=== PATIENT | male | born 1955 | race African-American/Black ===

== ENCOUNTER 2025-05-25 14:13 | Outpatient (REF) | payer MEDICARE, MEDICAID, SELFPAY ==
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
--- NOTE | ~2025-05-25 | US_ITS ---
CLINICAL HISTORY: CYST OF KIDNEY US Renal Comparison: None provided Findings: Right kidney normal size and echotexture, 9.4 cm length. Left kidney normal size and echotexture, 9.3 cm length. There is a 3.4 x 2.8 x 2.0 cm simple appearing cyst within the lower pole of the right kidney. There is a 2.7 x 2.3 x 2.5 cm cyst within the upper pole of the left kidney. This may contain a small septation. There is no associated blood flow. No collecting system dilatation of either kidney. Normal color Doppler. IMPRESSION: 1. There are bilateral kidney cysts. This document has been electronically signed by: Prachi Carson MD on 05/26/2025 15:42:51
--- OUTSIDE RECORDS SUMMARY | 2025-05-25 16:06 | XMS_ITS | Encounter Summary ---
Author Organization [employer] Address [address] [place] [address] Care Team Providers Care Junior Automation Engineer Name Role Phone Name, Ramon JOHNSON Primary Care Provider [phone] Reason for Visit * Reason Comments Med Refill Encounter Details Date Type Department Care Team ([facility] st Contact Info) Description 06/26/2023 Refill [facility] [address], [place] [phone] Sheree Guzman DO [address] [place], [place] [phone] Essential hypertension; Constipation, unspecified constipation type Social History Tobacco Use Types Packs/Day Years Used Date Smoking Tobacco: Every Day Cigarettes Alcohol Use Standard Drinks/Week Comments Never 0 (1 standard drink = 0.6 oz pur e alcohol) Depression Answer Date Recorded Patient Health Questionnaire-9 Score 0 03/31/2023 Housing Stability Answer Date Recorded What is your housing situation today? I have luz mccormack 06/26/[address] you li ve. Do you have problems with any of the following? None of the above 06/26/2023 Food Insecurity Answer Date Recorded Within the past 12 months, y ou worried that your food would run out before you got money to buy more: Often true 06/26/2023 Within the past 12 months,th e food you bought just didn't last and you didn't have enough money to get more: Often true Transportation Answer Date Recorded In the past 12 months, has l ack of transportation kept you from medical appts, meetings, work or from getting things needed for daily living? No 06/26/2023 Utilities Answer Date Recorded In the past 12 months, has t he electric, gas, oil or water company threatened to shut off services in your home? Yes 06/16/2023 Depression Answer Date Recorded Patient Health Questionnaire-2 Score 0 03/31/2023 Sex and Gender Information Value Date Recorded Sex Assigned at Male 07/07/2022 10:37 AM EDT Legal Sex Male 10:37 AM EDT Gender Identity Male 07/07/2022 10:37 AM EDT Sexual Orientation Choose not to disclose 2021 10:37 AM EDT documented as of this encounter Plan of Treatment Upcoming Encounters Date Type Department Care Team (Late st Contact Info) Description 07/07/2025 1:30 PM EDT Telemedicine [facility] [address] [place] [phone] Christal Buckner RN 07/25/2025 1:00 PM EST Office Visit [facility] [address] [place] [phone] Name, MD Ramon [address] [place] [phone] documented as of this encounter Visit Diagnoses Diagnosis Essential hypertension Unspecified essential hypertension Constipation, unspecified constipation type documented in this encounter Additional Health Concerns Assessment Noted Time PHQ-9 Depression Total Score: 0 03/31/20 23 1:14 PM EDT documented as of this encounter Care Teams Junior Automation Engineer Relationship Specialty Start Date End Date Name, MD Ramon [address] [place] [id number] PCP - General Family Medicine 12/25/20 documented as of this encounter
--- OUTSIDE RECORDS SUMMARY | 2025-05-25 16:06 | XMS_ITS | Encounter Summary ---
Author Organization [employer] Address 75 [facility] 7t [place] [address] Care Team Providers Care Chief Engineer Drilling And Recovery Name Role Phone Name, Ramon JOHNSON Primary Care Provider [phone] Reason for Visit * Reason Comments Med Refill Encounter Details Date Type Department Care Team ([facility] st Contact Info) Description 03/09/2025 Refill [facility] [address] [place], [place] [phone] Divine Mcneal NP 230 [place], [place] [phone] Essential hypertension Social History Tobacco Use Types Packs/Day Years Used Date Smoking Tobacco: Every Day Cigarettes Alcohol Use Standard Drinks/Week Comments Never 0 (1 standard drink = 0.6 oz pur e alcohol) Depression Answer Date Recorded Patient Health Questionnaire-9 Score 10 02/28/2025 Patient Health Questionnaire-9 Score 10 02/28/2025 Last PHQ-9: Questionnaire Data Not on file 0 02/28/2025 Housing Stability Answer Date Recorded What is your housing situation today? I have luz mccormack 02/28/[address] you li ve. Do you have problems with any of the following? None of the above 02/28/2025 Food Insecurity Answer Date Recorded Within the past 12 months, y ou worried that your food would run out before you got money to buy more: Never True 02/28/2025 Within the past 12 months,th e food you bought just didn't last and you didn't have enough money to get more: Never True Transportation Answer Date Recorded In the past 12 months, has l ack of transportation kept you from medical appts, meetings, work or from getting things needed for daily living? No 02/28/2025 Utilities Answer Date Recorded In the past 12 months, has t he electric, gas, oil or water company threatened to shut off services in your home? No 02/28/2025 Depression Answer Date Recorded Patient Health Questionnaire-2 Score 3 02/28/2025 Internet Access Answer Date Recorded Internet Access Q1 Yes 02/28/2025 Internet Access Q2 Not on file 02/28/2025 Sex and Gender Information Value Date Recorded Sex Assigned at Male 07/07/2022 10:37 AM EDT Legal Sex Male 10:37 AM EDT Gender Identity Male 07/07/2022 10:37 AM EDT Sexual Orientation Choose not to disclose 2021 10:37 AM EDT documented as of this encounter Plan of Treatment Upcoming Encounters Date Type Department Care Team (Late st Contact Info) Description 07/07/2025 1:30 PM EDT Telemedicine [facility] [address] [place] [phone] Christal Buckner RN 07/25/2025 1:00 PM EST Office Visit [facility] [address] [place] [address] NameRamon MD [address] [place] [address] documented as of this encounter Visit Diagnoses Diagnosis Essential hypertension Unspecified essential hypertension documented in this encounter Additional Health Concerns Assessment Noted Time PHQ-9 Depression Total Score: 10 025 2:08 PM EDT documented as of this encounter Care Teams Chief Engineer Drilling And Recovery Relationship Specialty Start Date End Date NameRamon MD [address] [place] [address] PCP - General Family Medicine 12/25/20 documented as of this encounter
--- OUTSIDE RECORDS SUMMARY | 2025-05-25 16:06 | XMS_ITS | Encounter Summary ---
Author Organization [employer] Address 75 [facility] 7t [place] [address] Care Team Providers Care Health Administrator Name Role Phone Name, Ramon JOHNSON Primary Care Provider [phone] Reason for Visit * Reason Comments Med Refill Encounter Details Date Type Department Care Team ([facility] st Contact Info) Description 10/07/2023 Refill [facility] 230 [place], [place] [phone] Fay Winter MD 230 [place], [place] [phone] Essential hypertension Social History Tobacco Use Types [...] Info) Description 07/07/2025 1:30 PM EDT Telemedicine [facility] [address] [place] [address] Christal Buckner RN 07/25/2025 1:00 PM EST Office Visit [facility] [address] [place] [address] Name, MD Ramon [address] [place] [address] documented as of this encounter Visit Diagnoses Diagnosis Essential hypertension Unspecified essential hypertension documented in this encounter Additional Health Concerns Assessment Noted Time PHQ-9 Depression Total Score: 0 03/31/20 23 1:14 PM EDT documented as of this encounter Care Teams Health Administrator Relationship Specialty Start Date End Date Ramon Hurst MD [address] [place] [address] PCP - General Family Medicine 12/25/20 documented as of this encounter
--- OUTSIDE RECORDS SUMMARY | 2025-05-25 16:06 | XMS_ITS | Encounter Summary ---
Author Organization [employer] Address 75 [facility] 7t [place] [address] Care Team Providers Care Front Desk Team Member Name Role Phone Name, Ramon JOHNSON Primary Care Provider [phone] Reason for Visit * Reason Comments Med Refill Encounter Details Date Type Department Care Team ([facility] st Contact Info) Description 02/29/2024 Refill [facility] 230 [place] [address] Name, MD Ramon 230 [place], [place] [phone] Essential hypertension Social History Tobacco Use Types [...] t he electric, gas, oil or water [employer] threatened to shut off services in your [...] Info) Description 07/07/2025 1:30 PM EDT Telemedicine [facility] [address] [place] [address] Christal Buckner RN 07/25/2025 1:00 PM EST Office Visit [facility] [address] [place] [address] NameRamon MD [address] [place] [address] documented as of this encounter Visit Diagnoses Diagnosis Essential hypertension Unspecified essential hypertension documented in this encounter Additional Health Concerns Assessment Noted Time PHQ-9 Depression Total Score: 0 03/31/20 23 1:14 PM EDT documented as of this encounter Care Teams Front Desk Team Member Relationship Specialty Start Date End Date NameRamon MD [address] [place] [address] PCP - General Family Medicine 12/25/20 documented as of this encounter
--- OUTSIDE RECORDS SUMMARY | 2025-05-25 16:06 | XMS_ITS | Encounter Summary ---
Author Organization [employer] Address 75 [facility] 7t [place] [address] Care Team Providers Care Measuring Machine Operator Name Role Phone Name, Ramon JOHNSON Primary Care Provider [phone] Reason for Visit * Reason Comments Med Refill Encounter Details Date Type Department Care Team ([facility] st Contact Info) Description 05/27/2024 Refill [facility] 230 [place] [address] Name, MD Ramon 230 [place], [place] [phone] Social History Tobacco Use Types Packs/Day Years [...] the past 12 months, has t he Risk Ident, [employer], oil or water company threatened to shut [...] Info) Description 07/07/2025 1:30 PM EDT Telemedicine [facility] [address] [place] [address] Christal Buckner RN 07/25/2025 1:00 PM EST Office Visit [facility] [address] [place] [address] Name, MD Ramon [address] [place] [address] documented as of this encounter Visit Diagnoses Not on filedocumented in this encounter Additional Health Concerns Assessment Noted Time PHQ-9 Depression Total Score: 0 03/31/20 23 1:14 PM EDT documented as of this encounter Care Teams Measuring Machine Operator Relationship Specialty Start Date End Date Name, MD Ramon [address] [place] [address] PCP - General Family Medicine 12/25/20 documented as of this encounter
--- OUTSIDE RECORDS SUMMARY | 2025-05-25 16:06 | XMS_ITS | Clinical Summary ---
Author Organization [facility], Address [address] [place] [address] [place] [address] Phone Care Team Providers Care Senior Network Architect Name Role Phone Name, Ramon JOHNSON Primary Care Provider [phone] Allergies Active Allergy Reactions Criticality Noted Date Comments Acetaminophen-Codeine Other (see comments) 05/2021 Codeine 07/04/2021 Ibuprofen Other (see comments) 05/16/2021 Lidocaine Other (see comments) 05/16/2021 Morphine Other (see comments) 05/16/2021 Oxycodone Other (see comments) 05/16/2021 Medications amLODIPine (NORVASC) 5 MG tablet Take 5 mg by mouth 1 (one) time each day 03/12/2021 Active nicotine (NICODERM CQ) 14 MG/24HR Place 1 patch on the skin 1 (one) time each day 03/01/2021 Active oxyCODONE (ROXICODONE) 15 MG immediate release tablet Take 15 mg by mouth every 6 (six) hours 03/15/2021 Active baclofen (LIORESAL) 10 MG tablet Take 10 mg by mouth 3 (three) times a day Active gabapentin (NEURONTIN) 600 MG tablet Take 800 mg by mouth 3 (three) times a day Active lactulose (CHRONULAC) 10 GM/15ML solution Take 15 mL by mouth 1 (one) time each day Active lisinopril (PRINIVIL,ZESTRI L) 30 MG tablet Take 30 mg by mouth 1 (one) time each day Active Active Problems Problem Noted Date Diagnosed Date Chronic back pain 07/09/2021 Able to mobilize using wheelchair 07/09/2021 Cyst of kidney 07/04/2021 Overview (07/04/2021): bilateral, simple Essential hypertension 07/04/2021 Gout 07/04/2021 Chronic kidney disease, stage 2 (mild) 1 Resolved Problems Problem Noted Date Diagnosed Date Resolved Date Acute nontraumatic kidney injury 07/04/2021 07/08/2021 Hyponatremia 07/04/2021 07/09/2021 Overview (07/04/2021): hypochloremic History of hepatitis C 08/17/202005/16 Overview (05/16/2021): Followed by ID on [address] Does not know how he contracted virus Mixed anxiety and depressive disorder 07/26/2020 05/16/2021 Immunizations Immunization Administration Dates Next Due Influenza TIV (IM) 06/11/2010,06/11/2009 Influenza, MDCK, PF, Quadrivalent 06/28/2020 Influenza, Quadrivalent, Preservative Free 06/29 Influenza, Trivalent, Adjuvanted 06/02/2019 Pneumococcal Polysaccharide 02/21/2018 TD Preservative Free 05/31/2015 Td 10/02/2008 Social History Tobacco Use Types Packs/Day Years Used Date Smoking Tobacco: Light Smoker Sex and Gender Information Value Date Recorded Sex Assigned at Not on file Legal Sex Male 4:30 PM EST Gender Identity Not on file Sexual Orientation Not on file Last Filed Vital Signs Vital Sign Reading Time Taken Comments Blood Pressure 158/104 05/14/2018 12:00 PM EDT Pulse - - Temperature - - Respiratory Rate - - Oxygen Saturation - - Inhaled Oxygen Concentration - - Weight - - Height - - Body Mass Index - - Plan of Treatment Health Maintenance Due Date Last Done Comments Colorectal Cancer Screening: Annual FOBT 2004 Colorectal Cancer Screening: Colonoscopy 2004 Colorectal Cancer Screening: Sigmoidoscopy 2004 Pneumococcal Vaccine: 50+ Years (2 of 2 - PCV) 02/21/2019 02/21/2018 Influenza Vaccine (#1) 2025 0, 06/02/2019, 06/29/2018, Additional history exists Pneumococcal Vaccine: Peds (0 to 5 Years) and At-Risk Patients (6 to 49 Years) Discontinued 02/21/2018 Hepatitis B Vaccine Aged Out No longe r eligible based on patient's age to complete this topic Insurance Medicare Medicaid [place] Care Teams Senior Network Architect Relationship Specialty Start Date End Date Name, MD Ramon [address] [place] [address] PCP - General Internal Medicine 07/04/21
--- OUTSIDE RECORDS SUMMARY | 2025-05-25 16:06 | XMS_ITS | Encounter Summary ---
Author Organization [employer] Address 75 [facility] 7t [place] [address] Care Team Providers Care Emergency Medical Technician Basic Name Role Phone Name, Ramon JOHNSON Primary Care Provider [phone] Reason for Visit * Reason Comments Med Refill Encounter Details Date Type Department Care Team ([facility] st Contact Info) Description 03/02/2025 Refill [facility] 230 [place], [place] [phone] Divine Mcneal NP 230 [place], [place] [phone] Essential hypertension Social History Tobacco Use Types [...] Info) Description 07/07/2025 1:30 PM EDT Telemedicine [facility] [address] [place] [address] Christal Buckner RN 07/25/2025 1:00 PM EST Office Visit [facility] [address] [place] [address]68 NameRamon MD [address] [place] [address] documented as of this encounter Visit Diagnoses Diagnosis Essential hypertension Unspecified essential hypertension documented in this encounter Additional Health Concerns Assessment Noted Time PHQ-9 Depression Total Score: 10 025 2:08 PM EDT documented as of this encounter Care Teams Emergency Medical Technician Basic Relationship Specialty Start Date End Date NameRamon MD [address] [place] [address] PCP - General Family Medicine 12/25/20 documented as of this encounter
--- OUTSIDE RECORDS SUMMARY | 2025-05-25 16:06 | XMS_ITS | Encounter Summary ---
Author Organization [employer] Address 75 [facility] 7t [place] [address] Care Team Providers Care Conductor Road Freight Name Role Phone Name, Ramon JOHNSON Primary Care Provider [phone] Reason for Visit * Reason Onset Date Comments PT-1 01/06/2025 Encounter Details Date Type Department Care Team ([facility] st Contact Info) Description 01/06/2025 Telephone [facility] 230 [place], [place] [phone] Name, MD Ramon 230 [place] [address] PT-1 Social History Tobacco Use Types Packs/Day Years [...] AM EDT documented as of this encounter Miscellaneous Notes * Telephone Encounter - Arthur Bose - 01/06/2025 10:12 AM EDT Patient calling requesting PT1 Home Address verified: Y/N: Yes Provider name or facility name: [address] [address] Escort needed: Y/N: Yes Do you have a wheelchair: Y/N: Yes If yes- Manual or electric: electric Visits: ( 3 x monthly) documented in this encounter Plan of Treatment Upcoming Encounters Date Type Department Care Team (Late st Contact Info) Description 07/07/2025 1:30 PM EDT Telemedicine [facility] [address] [place] [address] Christal Buckner RN 07/25/2025 1:00 PM EST Office Visit [facility] [address] [place] [address] Name, MD Ramon [address] [place] [address] documented as of this encounter Visit Diagnoses Not on filedocumented in this encounter Additional Health Concerns Assessment Noted Time PHQ-9 Depression Total Score: 0 03/31/20 23 1:14 PM EDT documented as of this encounter Care Teams Conductor Road Freight Relationship Specialty Start Date End Date NameRamon MD [address] [place] [address] PCP - General Family Medicine 12/25/20 documented as of this encounter
--- OUTSIDE RECORDS SUMMARY | 2025-05-25 16:06 | XMS_ITS | Encounter Summary ---
Author Organization [employer] Address 75 [facility] 7t [place] [address] Care Team Providers Care Manager Grocery Name Role Phone Name, Ramon JOHNSON Primary Care Provider [phone] Reason for Visit * Reason Comments Med Refill Encounter Details Date Type Department Care Team ([facility] st Contact Info) Description 05/09/2025 Refill [facility] 230 [place] [address] Name, MD Ramon 230 [place], [place] [phone] Social History Tobacco Use Types Packs/Day Years Used Date Smoking Tobacco: Every Day Cigarettes Passive Smoke Exposure: Current Alcohol Use Standard Drinks/Week Comments Never 0 [...] Info) Description 07/07/2025 1:30 PM EDT Telemedicine [facility] [address] [place] [address] Christal Buckner RN 07/25/2025 1:00 PM EST Office Visit [facility] [address] [place] [address] NameRamon MD [address] [place] [address] documented as of this encounter Visit Diagnoses Not on filedocumented in this encounter Additional Health Concerns Assessment Noted Time PHQ-9 Depression Total Score: 10 025 2:08 PM EDT documented as of this encounter Care Teams Manager Grocery Relationship Specialty Start Date End Date NameRamon MD [address] [place] [address] PCP - General Family Medicine 12/25/20 documented as of this encounter
--- OUTSIDE RECORDS SUMMARY | 2025-05-25 16:06 | XMS_ITS | Encounter Summary ---
Author Organization [employer] Address 75 [facility] 7t [place] [address] Care Team Providers Care Brick Shader Name Role Phone Name, Ramon JOHNSON Primary Care Provider [phone] Reason for Visit * Reason Onset Date Comments Nurse Triage 08/15/2024 Encounter Details Date Type Department Care Team ([facility] st Contact Info) Description 08/15/2024 Telephone [facility] 230 [place] [address] Name, MD Ramon 230 [place] [address] Nurse Triage Social History Tobacco Use Types Packs/Day Years [...] encounter Miscellaneous Notes * Telephone Encounter - Suzie Al RN - 08/15/2024 10:21 AM EST Called pt to triage, spoke to pt. Pt declines triage or need for appt urgently. Pt cancelled his appt of today with PCP due to the cold. Pt states when it is cold outside, he cannot tolerate it. Pt states the cold makes him achy and uncomfortable. Pt has mild cold symptoms, mostly runny nose. Advised to call back as needed. * Telephone Encounter - Arthur Bose - 08/15/2024 8:43 AM EST Symptom: Colds Outcome: Schedule an appointment to be seen within 24 hours Reason: Caller denied all higher acuity questions The caller accepted this outcome. documented in this encounter Plan of Treatment Upcoming Encounters Date Type Department Care Team (Late st Contact Info) Description 07/07/2025 1:30 PM EDT Telemedicine [facility] [address] [place] [address] Christal Buckner RN 07/25/2025 1:00 PM EST Office Visit [facility] [address] [place] [address] Name, MD Ramon [address] [place] [address] documented as of this encounter Visit Diagnoses Not on filedocumented in this encounter Additional Health Concerns Assessment Noted Time PHQ-9 Depression Total Score: 0 07/25/20 23 1:14 PM EDT documented as of this encounter Care Teams Brick Shader Relationship Specialty Start Date End Date Name, MD Ramon [address] [place] [address] PCP - General Family Medicine 12/25/20 documented as of this encounter
--- OUTSIDE RECORDS SUMMARY | 2025-05-25 16:06 | XMS_ITS | Clinical Summary ---
Author Organization [facility] Address [address] [place] [address] Care Team Providers Care Site Superintendent Name Role Phone Unavailable Primary Care Provider Unavailabl e Source Comments PLEASE NOTE, if this patient is a minor, it may be UNLAWFUL to discuss sensitive information that is contained in these records (such as FAMILY PLANNING, MENTAL HEALTH or SUBSTANCE ABUSE) with the minor patient's parent or other person without the patient's specific authorization.[facility] Allergies No known active allergies Medications baclofen (LIORESAL) 10 mg tablet TAKE 1 TABLET BY MOUTH 3 TIMES A DAY NEEDED 0 Active gabapentin (NEURONTIN) 800 mg tablet Take 800 mg by mouth 3 (three) times daily 0 Active lisinopriL 30 mg tablet Take 30 mg by mouth once daily 0 Active nicotine (NICODERM CQ) 14 mg/24 hr patch APPLY 1 PATCH TO SKIN EVERY DAY 0 Active amLODIPine (NORVASC) 5 mg tablet Take 5 mg by mouth once daily 0 Active oxyCODONE (ROXICODONE) 15 mg tablet Take 15 mg by mouth 4 (four) times daily 0 Active salicylic acid 17 % external solutionIndicat ions:Plantar warts Apply topically once daily 50 mL 3 0 Active lactulose (CHRONULAC) 10 gram/15 mL solutionIndicat ions:Constipati on by delayed colonic transit TAKE 15 ML BY MOUTH ONCE DAILY 946 mL 1 2 Active Active Problems Problem Noted Date Diagnosed Date Allergic arthritis of right shoulder region 08/07 ISABELLA on CPAP 08/17/2020 History of hepatitis C 08/17/2020 Overview (08/19/2020): Followed by ID on [address] Does not know how he contracted virus Chronic bilateral low back pain with left-sided sciatica 07/26/2020 Overview (07/26/2020): S/p compression fractures of lumbar spine in 1989 Immobility 07/26/2020 Overview (07/26/2020): Wheelchair bound since 2008 Essential hypertension 07/26/2020 Primary insomnia 07/26/2020 Depression with anxiety 07/26/2020 Tobacco abuse 07/26/2020 Immunizations Immunization Administration Dates Next Due Flu, Cell Culture based, Pre servative Free, 6m+, Flucelvax 06/28/2020 Flu, Preservative Free 06/29/2018 INFLUENZA, SEASONAL, INJECTABLE 06/11/2010,06/11 Influenza (FLUAD), Trivalent, Adjuvanted 019 Td (adult), 5 Lf tetanus tox oid (Teniva), preservative free 05/31/2015 Family History Medical History Relation Name Comments Other Brother heart problems Other Father cirrhosis accident Son Relation Name Status Comments Brother Father Mother Alive Son Social History Tobacco Use Types Packs/Day Years Used Date Smoking Tobacco: Light Smoker Smokeless Tobacco: Never Tobacco Cessation:Ready to Q uit: Yes; Counseling Given: Yes Alcohol Use Standard Drinks/Week Comments Not Currently 0 (1 standard drink = 0.6 oz pur e alcohol) Social Connections Answer Date Recorded Social Connections and Isolation 0 07/26/2020 Financial Resource Strain Answer Date R ecorded Financial Resource Strain 0 2019 Stress Answer Date Recorded Stress 0 07/26/2020 Physical Activity Answer Date Recorded Physical Activity 0 07/26/2020 Food Insecurity Answer Date Recorded Food 0 07/26/2020 Transportation Needs Answer Date Record ed Transportation 0 07/26/2020 Housing Stability Answer Date Recorded Housing 0 07/26/2020 Safety and Environment Answer Date Sy rded Safety 0 07/26/2020 Utilities Answer Date Recorded Utilities 0 07/26/2020 Employment Answer Date Recorded Employment 0 07/26/2020 Sex and Gender Information Value Date Recorded Sex Assigned at Male 07/26/2020 12:04 PM PST Legal Sex Male 2:46 PM PDT Gender Identity Male 07/26/2020 12:04 PM PST Sexual Orientation Straight 07/26/2020 12 :04 PM PST Occupation Industry Job Start Date Job End Date disabled due to back injury Not on file Not on file Not on file Last Filed Vital Signs Vital Sign Reading Time Taken Comments Blood Pressure 131/85 08/17/2020 3:40 PM EST Pulse 64 08/17/2020 3:40 PM EST Temperature 36.4 C (97.6 F) 08/17/2020 3:40 PM EST Respiratory Rate 18 08/17/2020 3:40 PM EST Oxygen Saturation 95% 08/17/2020 3:40 PM EST Inhaled Oxygen Concentration - - Weight - - Height - - Body Mass Index - - Plan of Treatment Not on file Insurance [place]
--- OUTSIDE RECORDS SUMMARY | 2025-05-25 16:06 | XMS_ITS | Clinical Summary ---
Author Organization [employer] Address [address] [facility] [address] [place] [address] Care Team Providers Care Shipyard Supervisor Name Role Phone Name, Ramon JOHNSON Primary Care Provider [phone] Allergies Active Allergy Reactions Criticality Noted Date Comments Acetaminophen 12/25/2020 Acetaminophen-Codeine 05/16/2021 Other reaction(s): Other (see comments) Codeine 12/25/2020 Ibuprofen 05/16/2021 Other reaction(s): Other (see comments) Lidocaine 12/25/2020 Other reaction(s): Other (see comments) Morphine 05/16/2021 Other reaction(s): morphine, Other (see comments) Oxycodone 05/16/2021 Other reaction(s): Other (see comments) Medications * This document contains information received from the source organization and may not represent a complete record from that organization. baclofen (Lioresal) 10 MG tablet Take 1 tablet by mouth in the morning and 1 tablet at noon and 1 tablet in the evening. Active busPIRone (Buspar) 5 MG tablet Take 5 mg by mouth in the morning and 5 mg in the evening. 05/13/20 22 Active gabapentin (Neurontin) 800 MG tablet Take 800 mg by mouth in the morning and 800 mg at noon and 800 mg in the evening. 05/04/20 20 Active ramelteon (Rozerem) 8 MG tablet Take 8 mg by mouth at bedtime. 11/12/19 22 Active loratadine (Claritin) 10 MG tablet TAKE 1 TABLET BY MOUTH EVERY DAY 90 tablet 1 07/15/20 24 Active lactulose (Chronulac) 10 GM/15ML solutionIndicat ions:Constipati on, unspecified constipation type TAKE 15ML BY MOUTH EVERY DAY 1419 mL 2 07/15/20 24 Active amLODIPine (Norvasc) 5 MG tablet TAKE 1 TABLET BY MOUTH EVERY DAY 90 tablet 1 01/10/20 25 Active mometasone (Elocon) 0.1 % ointment Apply topically Once per day. 45 g 3 02/29/20 25 2025 Active nicotine (Nicoderm, Step 2) 14 MG/24HR patchIndication s:Tobacco use PLACE 1 PATCH TO SKIN ONCE DAILY 28 patch 3 03/02/20 25 Active lisinopril 30 MG tabletIndicatio ns:Essential hypertension TAKE 1 TABLET BY MOUTH EVERY DAY 90 tablet 04/03/20 25 Active naloxone (Narcan) 4 mg/0.1 mL nasal sprayIndication s:Long-term current use of opiate analgesic Administer 1 spray (4 mg) into affected nostril(s) if needed for opioid reversal. May repeat every 2-3 minutes if needed, alternating nostrils, until medical assistance becomes available. 2 each 3 04/28/20 25 2025 Active oxyCODONE (Roxicodone) 15 MG immediate release tabletIndicatio ns:Chronic pain syndrome Take 1 tablet (15 mg) by mouth every 6 (six) hours for 26 days. Do not start before May 04, 2025. 104 tablet 05/04/20 25 2024 Active oxyCODONE (Roxicodone) 15 MG immediate release tabletIndicatio ns:Chronic pain syndrome Take 1 tablet (15 mg) by mouth every 6 (six) hours for 26 days. Do not start before April 08, 2025. 104 tablet 04/08/20 25 2024 Discontinued(R eorder (will not trigger notification to Pharmacy)) Active Problems Problem Noted Date Diagnosed Date Long-term current use of opiate analgesic 2024 Disorder of teeth and supporting structures, uns pecified 04/19/2025 Prediabetes 03/31/2023 Osteoarthritis of knee 03/26/2023 History of colonoscopy 12/05/2022 Overview (12/05/2022): colonoscopy 2019 at [facility] polyp removed. Repeat recommended in 5 y Chronic insomnia 08/13/2022 Chronic low back pain 08/13/2022 Stage 3a chronic kidney disease 08/13/2022 Chronic pain syndrome 08/13/2022 Depressive disorder 08/13/2022 Essential hypertension 08/13/2022 Obstructive sleep apnea syndrome 08/13/2022 Overview (12/05/2022): Uses CPAP machine Viral hepatitis C 08/13/2022 Overview (01/25/2024): Treated by Eileen Bravo VL negative 2022 Tobacco use 08/13/2022 Overview (08/13/2022): Tobacco use and exposure finding per previous EHR Dependence on wheelchair 07/09/2021 Chronic kidney disease, stage 2 (mild) Cyst of kidney, acquired 07/04/2021 Overview (03/26/2023): bilateral, simple Gout 07/04/2021 Allergic arthritis of right shoulder region 08/07 Encounters Date Type Department Care Team Description 05/09/2025 Refill [facility] [address] [place] [address] NameRamon MD 05/02/2025 Refill [facility] [address] [place] [address] Name, MD Ramon Chronic pain syndrome 04/28/2025 1:00 PM EDT Telemedicine [facility] [address] [place] [address] Christal Buckner, RN Long-term current use of opiate analgesic 04/28/2025 Refill [facility] [address] [place] [address] Christal Buckner, RN Long-term current use of opiate analgesic (Primary Dx) 04/28/2025 Travel 04/27/2025 Travel 04/20/2025 Telephone [facility] [address] [place] [address] Name, MD Ramon Durable Medical Equipment (Boost/ensure) 04/17/2025 Refill [facility] [address] [place] [address] Divine Mcneal NP Essential hypertension 04/14/2025 3:30 PM EDT Office Visit [facility] [address] [place] [phone] Coral Rodriguez FNP Prediabetes (Primary Dx); Cyst of kidney, acquired; Disorder of teeth and supporting structures, unspecified; Chronic low back pain with bilateral sciatica, unspecified back pain laterality 04/14/2025 Travel 04/13/2025 Telephone [facility] [address] [place] [address] Coral Rodriguez FNP Chart Prep 04/07/[address] [address] Ramon Hurst MD Lab Orders 04/06/2025 Refill [facility] [address] [place] [phone] Ramon Hurst MD Chronic pain syndrome 04/05/2025 Patient Outreach [facility] [address] [place] [address] Ramon Hurst MD Pre-visit Planning (SDOH was already completed ) 04/01/2025 Refill [facility] [address] [place] [phone] Divine Mcneal NP Essential hypertension 03/31/[address] [address] Ramon Hurst MD Call Back Request 03/09/2025 Refill [facility] [address] [place] [address] Ramon Hurst MD Chronic pain syndrome 03/09/2025 Refill [facility] [address] [place] [phone] Divine Mcneal NP Essential hypertension 03/02/2025 Refill [facility] [address] [place] [phone] Divine cMneal NP Essential hypertension 03/02/2025 Refill [facility] [address] [place] [phone] Ramon Hurst MD Tobacco use 02/28/2025 1:00 PM EDT Office Visit [facility] [address] [place] [address] Name, MD Ramon Essential hypertension (Primary Dx); Stage 3a chronic kidney disease (CMS/HCC); Chronic low back pain with bilateral sciatica, unspecified back pain laterality; Bilateral leg weakness; Psoriasis 02/28/2025 Telephone [facility] [address] [place] [address] Name, MD Ramon PT1 (UPDATED Pt requesting renewal for PT1 , pt1 expries 03/16/2025//Patient requesting pt1 from his house [address] [facility] [address] [address] to [address] [facility] [address] when patient is done with appointment will need transportation back home , patient haves a wheelchair electric. How often 5 times a month.); PT1-Modified 02/28/2025 Travel 02/27/2025 Telephone [facility] [address] [place], [place] [phone] Ana Rosa Dominique MA chart prep from Last 3 Months Immunizations Immunization Administration Dates Next Due Hep B, adult 02/10/2022 Influenza Injectable Quadriv alant Preservative Free IIV4 MDCK 06/28/2020 Influenza Whole 06/25/2007 Influenza injectable quadriv alent preservative free 05/19/2022,06/29/2018 Influenza, High Dose Seasona l, Preservative Free 05/16/2024 Influenza, IIV3, injectable 06/11/2010, 9 Influenza, trivalent, adjuvanted 06/02/2019 Moderna Covid-19 Vaccine 12+ 12/19/2021,01/24/20 21,12/26/2020 Pneumococcal Conjugate PCV 13 02/10/2022 Pneumococcal Polysaccharide PPSV23 02/21/2018 Td (adult), 5 Lf tetanus tox oid, preservative free, adsorbed 05/31/2015 Td (adult), unspecified 10/02/2008 Tdap 05/19/2022 Social History Tobacco Use Types Packs/Day Years Used Date Smoking Tobacco: Every Day Cigarettes Passive Smoke Exposure: Current Tobacco Cessation:Ready to Q uit: Not Asked; Counseling Given: Not Answered Alcohol Use Standard Drinks/Week Comments Never 0 [...] not to disclose 2021 10:37 AM EDT Last Filed Vital Signs Vital Sign Reading Time Taken Comments Blood Pressure 112/82 04/14/2025 3:36 PM EDT Pulse 78 04/14/2025 3:36 PM EDT Temperature 36.7 C (98 F) 04/14/2025 3:36 PM EDT Respiratory Rate 16 04/14/2025 3:36 PM EDT Oxygen Saturation 98% 04/14/2025 3:36 PM EDT Inhaled Oxygen Concentration - - Weight 75.2 kg (165 lb 12 oz) 04/14/2025 3:36 PM EDT Height 182.9 cm (6') 04/14/2025 3:36 PM EDT Body Mass Index 22.48 04/14/2025 3:36 PM EDT Plan of Treatment Upcoming Encounters Date Type Department Care Team (Late st Contact Info) Description 07/07/2025 1:30 PM EDT Telemedicine [facility] [address] [place] [phone] Christal Buckner RN 07/25/2025 1:00 PM EST Office Visit [facility] [address] [place] [phone] Name, MD Ramon [address] [place] [address] Health Maintenance Due Date Last Done Comments CT Colonography 1955 FIT DNA/Cologuard 1955 FIT 1955 FOBT 1955 Lipid Panel 1955 Sigmoidoscopy 1955 Hepatitis A Vaccines (1 of 2 - Risk 2-dose series) 1974 Zoster Vaccines (1 of 2) 2005 RSV Patients and Patients Aged 60 years or older (1 - Risk 60-74 years 1-dose series) 2015 Hepatitis B Vaccines (2 of 3 - Risk 3-dose series) 03/10/2022 02/10/2022 Colonoscopy 08/16/2024 08/16/2019 Colorectal Cancer Screening 08/16/2024 COVID-19 Vaccine ( season) 2025 12/19/2021, 01/23/2021, 12/26/2020 Influenza Vaccine (#1) 2025 , 05/19/2022, 06/28/2020, Additional history exists Depression Monitoring 08/30/2025 02/28/2025, 025 Alcohol/Substance Use Screening 02/28/2026 02/28/2025 SDOH Screening 02/28/2026 02/28/2025 Diabetes: Hemoglobin A1C 04/14/2026 04/14/2025, 07/2 01/2023 Tobacco Screening 04/14/2026 04/14/2025 Pneumococcal Vaccine: 50+ Years (3 of 3 - PCV20 or PCV21) 02/10/2027 02/10/2022, 02/21/2018 DTaP/Tdap/Td Vaccines (2 - Td or Tdap) 05/19/2032 05/19/2022, 05/31/2015, 10/02/2008 HIB Vaccines Aged Out No longer eligi ble based on patient's age to complete this topic HPV Vaccines Aged Out No longer eligi ble based on patient's age to complete this topic IPV Vaccines Aged Out No longer eligi ble based on patient's age to complete this topic Meningococcal B Vaccine Aged Out No l onger eligible based on patient's age to complete this topic Meningococcal Vaccine Aged Out No maxine eva eligible based on patient's age to complete this topic RSV under 20 months Aged Out No longe r eligible based on patient's age to complete this topic Rotavirus Vaccines Aged Out No longer eligible based on patient's age to complete this topic Procedures Procedure Name Priority Date/Time Associated Diagnosis Comments POCT GLYCATED HEMOGLOBIN, TOTAL Routine 04/14/2025 3:38 PM EDT Prediabetes POCT GLUCOSE Routine 04/14/2025 3:38 PM EDT Prediabetes HM COLONOSCOPY Routine 08/16/2019 from Last 3 Months or Most Recently Relevant to Health Maintenance Results * (ABNORMAL) POCT HGB A1C (04/14/2025 3:38 PM EDT) Hemoglobin A1C 5.8(A) 4.0 - 5.7 % QC Media Lot # [id number] Lot# Expiration Date , Blood 04/14/2025 3:38 PM EDT Coral Michael TRAY PACKER POINT OF CARE TEST ENTER/EDIT ORDERABLES Final Result * POCT Glucose (04/14/2025 3:38 PM EDT) Glucose Blood, POC 141 60 - 200 mg/dL QC Media Lot # [id number] Lot# Expiration Date [id number] Blood Capillary blood specimen / Unknown 04/14/2025 3:38 PM EDT Coralreynaldo Rodriguez T[employer] P[employer]ER POINT OF CARE TEST ENTER/EDIT ORDERABLES Final Result * (ABNORMAL) Colonoscopy (08/16/2019) Colonoscopy Abnormal( A) Normal Comment:polyp removed Ramon Hurst MD HEALTH MAINTENANCE Final Result from Last 3 Months or Most Recently Relevant to Health Maintenance Insurance [employer] [address] [place] [phone] Care Teams Shipyard Supervisor Relationship Specialty Start Date End Date Name, MD Ramon [address] [place] [address] PCP - General Family Medicine 12/25/20
--- OUTSIDE RECORDS SUMMARY | 2025-05-25 16:06 | XMS_ITS | Encounter Summary ---
Author Organization [employer] Address [address] [facility] [address] [place] [address] Care Team Providers Care Powder Blender And Pourer Name Role Phone Name, Ramon JOHNSON Primary Care Provider Reason for Visit * Reason Comments Med Refill Encounter Details Date Type Department Care Team ([facility] st Contact Info) Description 04/17/2025 Refill [facility] [address] [place], [place] [phone] Divine Mcneal NP [address] [place], [place] [phone] Essential hypertension Social History Tobacco Use Types [...] Info) Description 07/07/2025 1:30 PM EDT Telemedicine [facility] [address] [place] [phone] Christal Buckner RN 07/25/2025 1:00 PM EST Office Visit [facility] [address] [place] [phone] NameRamon MD [address] [place] [address] documented as of this encounter Visit Diagnoses Diagnosis Essential hypertension Unspecified essential hypertension documented in this encounter Additional Health Concerns Assessment Noted Time PHQ-9 Depression Total Score: 10 025 2:08 PM EDT documented as of this encounter Care Teams Powder Blender And Pourer Relationship Specialty Start Date End Date NameRamon MD [address] [place] [phone] PCP - General Family Medicine 12/25/20 documented as of this encounter
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
== END 2025-05-25 14:14 | disposition home or self-care (01) ==
LOC: HO.US 14:13
PROVIDERS: PCP Internal Medicine Geriatric Medicine; Visit Provider Nurse Practitioner Family
DX: N28.1 Cyst of kidney, acquired (principal)
CPT/HCPCS: 76775

== ENCOUNTER → 2025-05-25 14:27 | Outpatient (BNV) | payer MEDICARE, MEDICAID, SELFPAY | PROVIDERS: PCP Internal Medicine Geriatric Medicine; Visit Provider Radiology Diagnostic Radiology | DX: N28.1 Cyst of kidney, acquired (principal) | CPT/HCPCS: 76775 ==